=== PATIENT | male | born 1990 | race Caucasian/White ===

== ENCOUNTER 2018-11-27 08:02 | Emergency (ER) | payer MEDICAID, OTHER ==
[~2018-11-27] VITALS: Ht 180.3 cm; Wt 99.8 kg
[2018-11-27 08:08] VITALS: BP 125/71
[2018-11-27] MEDS ORDERED: DEXAMETHASONE 4 MG TABLET PO ONE (08:15)
[2018-11-27] MEDS ORDERED: PERM60CR12 TP (08:19)
[2018-11-27] MEDS ORDERED: PRED20TA PO (08:20)
--- NOTE | 2018-11-27 08:20 | PHYS DOC ---
Past History Past Medical History: No Pertinent History Past Surgical History: Tonsillectomy Smoking: Cigarettes Alcohol Use: None Drug Use: None Adult General Chief Complaint Chief Complaint: SKIN RASH/ABSCESS HPI HPI 28-year-old male presents via EMS from [facility] with report of rash to whole body times one week. Reports rash is pruritic in nature. Denies known exposure. Patient reports he has been "all over". Denies taking any medication to help with symptoms. Denies fever or chills. Review of Systems Review of Systems Constitutional: Denies fever or chills Eyes: Denies redness or eye pain HENT: Denies nasal congestion or sore throat Respiratory: Denies cough or shortness of breath Cardiovascular: Denies chest pain or palpitations GI: Denies abdominal pain, nausea, or vomiting : Denies dysuria or hematuria Musculoskeletal: Denies back pain or joint pain Integument: Reports rash to trunk and extremities, reports pruritus Neurologic: Denies headache, focal weakness or sensory changes Complete systems were reviewed and found to be within normal limits, except as documented in this note. Allergies Allergies Allergies Coded Allergies Type Severity Reaction Last Updated Verified Antihistamines - Alkylamine Allergy Unknown 11/27/18 Yes Penicillins Allergy Unknown 11/27/18 Yes Physical Exam Physical Exam Constitutional: Well developed, well nourished, no acute distress, non-toxic appearance HENT: Normocephalic, atraumatic, oropharynx moist Eyes: Conjunctiva normal, no discharge Neck: Normal range of motion, no tenderness, supple Lungs & Thorax: No respiratory distress Skin: Warm, dry, no erythema, scattered maculopapular rash to trunk and bilateral upper and lower extremities, rash also noted along the line. Does not appear to be in between fingers Extremities: No tenderness, ROM intact Neurologic: Alert and oriented X 3, no focal deficits noted Psychologic: Affect normal, judgement normal Current Patient Data Vital Signs Vital Signs Date Time Temp Pulse Resp B/P (MAP) Pulse Ox O2 Delivery O2 Flow Rate FiO2 11/27/18 08:08 97.8 85 18 97 Room Air EKG EKG [] Radiology/Procedures Radiology/Procedures [] Course & Med Decision Making Course & Med Decision Making Patient presents with pruritic rash to bilateral upper and lower extremities along with trunk. Worse of long belt line. Concern for possible scabies. Symptomatic treatment provided with oral steroid. Permethrin cream prescribed. Patient stable for discharge with outpatient follow-up with PCP. Discussed findings and plan with patient, who acknowledges understanding and agreement. Tristin Disclaimer Cristalon Disclaimer This electronic medical record was generated, in whole or in part, using a voice recognition dictation system. Departure Departure: Impression: Primary Impression: Dermatitis Disposition: HOME, SELF-CARE Condition: STABLE Referrals: DG SOLIMAN DO (PCP) Patient Instructions: Rash, [id number], Scabies Scripts Prednisone (PREDNISONE) 20 Mg Tablet 2 TAB PO DAILY for Rash, #8 TAB Start this presription tomorrow. Prov: YADIEL PORTILLO DO 11/27/18 Permethrin (PERMETHRIN) 60 Gm Cream..g. 1 DALE TP ONCE for Dermatitis, #60 GM Apply cream to entire body from head to feet and leave on for 8-14 hours, then wash with soap/water, repeat application in 14 days after initial treatment Prov: YADIEL PORTILLO DO 11/27/18 YADIEL PORTILLO DO Nov 27, 2018 08:20
== END 2018-11-27 08:28 | disposition home or self-care (01) ==
LOC: ER 08:02
DX: L30.9 Dermatitis, unspecified (principal); F17.210 Nicotine dependence, cigarettes, uncomplicated; Z59.0 Homelessness; Z88.0 Allergy status to penicillin; Z88.8 Allergy status to other drugs, medicaments and biological substances
CPT/HCPCS: 99283; J8540

== ENCOUNTER 2018-11-27 19:35 | Emergency (ER) | payer MEDICAID ==
[~2018-11-27] VITALS: Ht 180.3 cm; Wt 99.8 kg
[~2018-11-27 19:35] MED LIST: PERM60CR12 TP; PRED20TA PO
--- NOTE | 2018-11-27 20:32 | ED.ADGEN ---
Past History Past Medical History: No Pertinent History, Anxiety, Bipolar, Schizophrenia, Other Past Surgical History: Tonsillectomy Smoking: Cigarettes Alcohol Use: None Drug Use: None Adult General Chief Complaint Chief Complaint ".. I am dehydrated... maybe I got some rat poison.. I was here earlier.. and got treatment for my bug bites... and rash.. but now I am dehydrated...".. " [facility] a [facility]....you need to just admit me and let me sleep here tonight...." " I am afraid my BP is too high. " " I need to drink some gator aid..." HPI HPI Patient is a 28 year old male who presents with above hx and complaints. Pt. return from earlier visit to ED. Now compliant of heat stroke... and possible poisoning by rat poison. Pt very poor historian. No complaints of suicidal ideation. No complaints homicidal ideation. No complaints of hallucinations. Patient does state he has a history of psychological issues. Review of Systems Review of Systems Constitutional: Complaints of fever Eyes: Denies change in visual acuity, redness, or eye pain [] HENT: Denies nasal congestion or sore throat [] Respiratory: Denies cough or shortness of breath [] Cardiovascular: No additional information not addressed in HPI [] GI: Denies abdominal pain, nausea, vomiting, bloody stools or diarrhea [] : Denies dysuria or hematuria [] Musculoskeletal: Denies back pain or joint pain [] Integument: Denies rash or skin lesions [] Neurologic: Denies headache, focal weakness or sensory changes [] Endocrine: Denies polyuria or polydipsia [] All other systems were reviewed and found to be within normal limits, except as documented in this note. Family History Family History Refused by pt. Current Medications Current Medications Current Medications Medications (Trade) Dose Ordered Sig/[place] Start Time Stop Time Status Last Admin Dose Admin Acetaminophen (Tylenol) 1,000 mg 1X ONCE 11/28/18 06:30 11/28/18 06:33 DC 11/28/18 06:27 1,000 MG Lactated Ringer's 1,000 ml @ 1,000 mls/hr Q1H 11/27/18 20:45 11/28/18 09:19 DC 11/27/18 21:23 1,000 MLS/HR Allergies Allergies Allergies Coded Allergies Type Severity Reaction Last Updated Verified Antihistamines - Alkylamine Allergy Unknown 11/27/18 Yes Penicillins Allergy Unknown 11/27/18 Yes Physical Exam Physical Exam Constitutional: Well developed, well nourished, no acute distress, non-toxic appearance. [] HENT: Normocephalic, atraumatic, bilateral external ears normal, oropharynx moist, no oral exudates, nose normal. [] Eyes: PERRLA, EOMI, conjunctiva normal, no discharge. [] Neck: Normal range of motion, no tenderness, supple, no stridor. [] Cardiovascular:Heart rate regular rhythm, no murmur [] Lungs & Thorax: Bilateral breath sounds clear to auscultation [] Abdomen: Bowel sounds normal, soft, no tenderness, no masses, no pulsatile masses. [] Skin: Warm, dry, no erythema, no rash. [] Back: No tenderness, no CVA tenderness. [] Extremities: No tenderness, no cyanosis, no clubbing, ROM intact, no edema. [] Neurologic: Alert and oriented X 3, normal motor function, normal sensory function, no focal deficits noted. [] Psychologic: Affect argumentative, judgement normal, mood normal. [] Current Patient Data Vital Signs Vital Signs Date Time Temp Pulse Resp B/P (MAP) Pulse Ox O2 Delivery O2 Flow Rate FiO2 11/28/18 07:01 71 14 102/45 (64) 100 Room Air 11/28/18 03:29 97.5 Lab Results Laboratory Tests Test 11/27/18 20:45 White Blood Count 6.7 x10^3/uL (4.0-11.0) Red Blood Count 4.63 x10^6/uL (4.30-5.70) Hemoglobin 14.3 g/dL (13.0-17.5) Hematocrit 43.1 % (39.0-53.0) Mean Corpuscular Volume 93 fL (79-100) Mean Corpuscular Hemoglobin 31 pg (25-35) Mean Corpuscular Hemoglobin Concent 33 g/dL (31-37) Red Cell Distribution Width 13.3 % (11.5-14.5) Platelet Count 287 x10^3/uL (140-400) Neutrophils (%) (Auto) 86 % (31-73) H Lymphocytes (%) (Auto) 9 % (24-48) L Monocytes (%) (Auto) 4 % (0-9) Eosinophils (%) (Auto) 0 % (0-3) Basophils (%) (Auto) 1 % (0-3) Neutrophils # (Auto) 5.7 x10^3uL (1.8-7.7) Lymphocytes # (Auto) 0.6 x10^3/uL (1.0-4.8) L Monocytes # (Auto) 0.3 x10^3/uL (0.0-1.1) Eosinophils # (Auto) 0.0 x10^3/uL (0.0-0.7) Basophils # (Auto) 0.1 x10^3/uL (0.0-0.2) Prothrombin Time 11.0 SEC (9.4-11.4) Prothrombin Time INR 1.1 (0.9-1.1) PTT 27 SEC (23-33) Urine Collection Type Unknown Urine Color Yellow Urine Clarity Clear Urine pH 6.0 Urine Specific [place] <=1.005 Urine Protein Neg (NEG-TRACE) Urine Glucose (UA) Neg mg/dL (NEG) Urine Ketones (Stick) Neg mg/dL (NEG) Urine Blood Neg (NEG) Urine Nitrite Neg (NEG) Urine Bilirubin Neg (NEG) Urine Urobilinogen Dipstick 0.2 mg/dL (0.2 mg/dL) Urine Leukocyte Esterase Neg (NEG) Urine RBC 0 /HPF (0-2) Urine WBC 0 /HPF (0-4) Urine Squamous Epithelial Cells Occ /LPF Urine Bacteria 0 /HPF (0-FEW) Sodium Level 142 mmol/L (136-145) Potassium Level 4.3 mmol/L (3.5-5.1) Chloride Level 105 mmol/L (98-107) Carbon Dioxide Level 28 mmol/L (21-32) Anion Gap 9 (6-14) Blood Urea Nitrogen 12 mg/dL (8-26) Creatinine 0.8 mg/dL (0.7-1.3) Estimated GFR (Cockcroft-Gault) 116.0 Glucose Level 180 mg/dL (70-99) H Calcium Level 9.1 mg/dL (8.5-10.1) Magnesium Level 2.3 mg/dL (1.8-2.4) Total Bilirubin 0.2 mg/dL (0.2-1.0) Direct Bilirubin 0.1 mg/dL (0.0-0.2) Aspartate Amino Transferase (AST) 21 U/L (15-37) Alanine Aminotransferase (ALT) 37 U/L (16-63) Alkaline Phosphatase 83 U/L (46-116) Creatine Kinase 160 U/L (39-308) Troponin I Quantitative < 0.017 ng/mL (0-0.055) Total Protein 7.1 g/dL (6.4-8.2) Albumin 3.8 g/dL (3.4-5.0) Urine Opiates Screen Neg (NEG) Urine Methadone Screen Neg (NEG) Urine Barbiturates Neg (NEG) Urine Phencyclidine Screen Neg (NEG) Urine Amphetamine/Methamphetamine Neg (NEG) Urine Benzodiazepines Screen Neg (NEG) Urine Cocaine Screen Neg (NEG) Urine Cannabinoids Screen Neg (NEG) Urine Ethyl Alcohol Neg (NEG) EKG EKG [] Radiology/Procedures Radiology/Procedures [] Course & Med Decision Making Course & Med Decision Making Pertinent Labs and Imaging studies reviewed. (See chart for details) After reviewing labs and fluid bolus of LR. Pt. in process of discharge. Stated he wanted to stay the night. Offer transfer to homeless assisted. Pt. then stated he wanted to be evaluated for Suicide. No plan. Pt. states he would have to stay and be evaluated. See Tele Psych. eval. Awaiting Tele. Psych. report and possible placement at shift change. Dr. Humberto rogel will make disposition. [] Final Impression Final Impression 1. Anxiety disorder 2. Heat complaints 3. Possible malingering 4. Reports suicidal ideation[] 5. Hx. Schizoaffective disorder 6. Hx. Bipolar 7. Hx. of borderline personality Dragon Disclaimer Dragon Disclaimer This electronic medical record was generated, in whole or in part, using a voice recognition dictation system. MARK KELSEY MD Nov 27, 2018 20:32
[2018-11-27 20:59] LABS: BASO # 0.1 x10^3/uL (0.0-0.2); BASO % 1 % (0-3); EOS % 0 % (0-3); HEMATOCRIT 43.1 % (39.0-53.0); HEMOGLOBIN 14.3 g/dL (13.0-17.5); LYMPH # 0.6 x10^3/uL (1.0-4.8); LYMPH % 9 % (24-48); MEAN CORPUSCULAR HEMOGLOBIN 31 pg (25-35); MEAN CORPUSCULAR HGB CONC 33 g/dL (31-37); MEAN CORPUSCULAR VOLUME 93 fL (79-100); MONO # 0.3 x10^3/uL (0.0-1.1); MONO % 4 % (0-9); NEUT # 5.7 x10^3uL (1.8-7.7); NEUT % 86 % (31-73); PLATELET COUNT 287 x10^3/uL (140-400); RED BLOOD COUNT 4.63 x10^6/uL (4.30-5.70); RED CELL DISTRIBUTION WIDTH 13.3 % (11.5-14.5); WHITE BLOOD COUNT 6.7 x10^3/uL (4.0-11.0)
[2018-11-27 21:07] LABS: AMPHETAMINE/METHAMPHETAMINE NEG (NEG); BARBITURATES NEG (NEG); BENZODIAZEPINES NEG (NEG); CANNABINOIDS NEG (NEG); COCAINE NEG (NEG); METHADONE NEG (NEG); OPIATES NEG (NEG); PHENCYCLIDINE NEG (NEG)
[2018-11-27 21:11] LABS: BILIRUBIN,URINE NEG (NEG); CLARITY,URINE CLEAR; COLOR,URINE YELLOW; GLUCOSE,URINE NEG (NEG)
[2018-11-27 21:12] LABS: BACTERIA,URINE 0 /HPF (0-FEW); NITRITE,URINE NEG (NEG); RBC,URINE 0 /HPF (0-2); SQUAMOUS EPITHELIAL CELL,UR OCC /LPF; UROBILINOGEN,URINE 0.2 mg/dL (0.2 mg/dL); WBC,URINE 0 /HPF (0-4)
[2018-11-27 21:20] LABS: ALBUMIN 3.8 g/dL (3.4-5.0); CALCIUM 9.1 mg/dL (8.5-10.1); CREATININE 0.8 mg/dL (0.7-1.3); DIRECT BILIRUBIN 0.1 mg/dL (0.0-0.2); MAGNESIUM 2.3 mg/dL (1.8-2.4); POTASSIUM 4.3 mmol/L (3.5-5.1); TOTAL BILIRUBIN 0.2 mg/dL (0.2-1.0); TOTAL PROTEIN 7.1 g/dL (6.4-8.2)
[2018-11-27] MEDS: IV RINGERS SOLUTION,LACTATED 1,000 ML IV SCH (21:23)
[2018-11-28] MEDS ORDERED: ACETAMINOPHEN 500 MG TABLET PO ONE (06:30)
[2018-11-28 07:01] VITALS: BP 102/45
== END 2018-11-28 09:13 | disposition home or self-care (01) ==
LOC: EEVIPCON 19:35 → ER 19:35
DX: T67.0XXA Heatstroke and sunstroke, initial encounter (principal); R45.851 Suicidal ideations; F41.9 Anxiety disorder, unspecified; F20.9 Schizophrenia, unspecified; F31.9 Bipolar disorder, unspecified; E86.0 Dehydration; F17.210 Nicotine dependence, cigarettes, uncomplicated; Z88.0 Allergy status to penicillin; Z88.8 Allergy status to other drugs, medicaments and biological substances; X58.XXXA Exposure to other specified factors, initial encounter; Y93.89 Activity, other specified; Y92.89 Other specified places as the place of occurrence of the external cause; Y99.8 Other external cause status
CPT/HCPCS: 36415; 80048; 80076; 80307; 81001; 82550; 83735; 84484; 85025; 85610; 85730; 99284; J7120; 96360

== ENCOUNTER 2019-01-10 15:07 | Emergency (ER) | payer SELFPAY ==
[~2019-01-10] VITALS: Ht 180.3 cm; Wt 99.8 kg
[2019-01-10 15:07] VITALS: BP 122/81
[2019-01-10] MEDS ORDERED: PRED20TA PO (15:25)
--- NOTE | 2019-01-10 15:25 | PHYS DOC ---
Past History Past Medical History: No Pertinent History, Anxiety, Bipolar, Schizophrenia, Other Past Surgical History: Other Smoking: Cigarettes Alcohol Use: None Drug Use: None Adult General Chief Complaint Chief Complaint: SKIN RASH/ABSCESS HPI HPI Patient is a 28-year-old male presents with an itching rash for the past 4 days. Patient reports exposure to poison [place]. Denies any difficulty breathing. No relief with calamine lotion. No fever. No discharge from the rash. Symptoms are moderate in intensity. Rash is on his arms and legs. No torso involvement.[] Review of Systems Review of Systems Constitutional: Denies fever or chills [] Eyes: Denies change in visual acuity, redness, or eye pain [] HENT: Denies nasal congestion or sore throat [] Respiratory: Denies cough or shortness of breath [] Cardiovascular: No chest pain or palpitations[] GI: Denies abdominal pain, nausea, vomiting, bloody stools or diarrhea [] : Denies dysuria or hematuria [] Musculoskeletal: Denies back pain or joint pain [] Integument: See history of present illness[] Neurologic: Denies headache, focal weakness or sensory changes [] Endocrine: Denies polyuria or polydipsia [] All other systems were reviewed and found to be within normal limits, except as documented in this note. Allergies Allergies Allergies Coded Allergies Type Severity Reaction Last Updated Verified Antihistamines - Alkylamine Allergy Unknown 11/27/18 Yes Penicillins Allergy Unknown 11/27/18 Yes Physical Exam Physical Exam Constitutional: Well developed, well nourished, no acute distress, non-toxic appearance. [] HENT: Normocephalic, atraumatic, bilateral external ears normal, oropharynx moist, no oral exudates, nose normal. [] Eyes: PERRLA, EOMI, conjunctiva normal, no discharge. [] Neck: Normal range of motion, no tenderness, supple, no stridor. [] Cardiovascular:Heart rate regular rhythm, no murmur [] Lungs & Thorax: Bilateral breath sounds clear to auscultation [] Abdomen: Bowel sounds normal, soft, no tenderness, no masses, no pulsatile masses. [] Skin: Warm, dry, erythematous rash on bilateral arms and legs. No torso involvement, no back involvement. No discharge from the erythematous wheals. No petechiae. No ulcers. No axillary lymphadenopathy. [] Back: No tenderness, no CVA tenderness. [] Extremities: No tenderness, no cyanosis, no clubbing, ROM intact, no edema. [] Neurologic: Alert and oriented X 3, normal motor function, normal sensory function, no focal deficits noted. [] Psychologic: Affect normal, judgement normal, mood normal. [] EKG EKG [] Radiology/Procedures Radiology/Procedures [] Course & Med Decision Making Course & Med Decision Making Pertinent Labs and Imaging studies reviewed. (See chart for details) ED course: Patient arrived, was placed in bed, and tolerated exam well. Findings were discussed with the patient along with plan. All questions were answered. He was discharged in improved condition. Medical decision making: Patient with a Rhus dermatitis. No evidence of systemic toxicity. No toxic epidermal necrolysis, no staph scalded skin syndrome, no Sandoval-Fortunato syndrome.[] Dragon Disclaimer Dragon Disclaimer This electronic medical record was generated, in whole or in part, using a voice recognition dictation system. Departure Departure: Impression: Primary Impression: Rhus dermatitis Disposition: HOME, SELF-CARE Condition: IMPROVED Referrals: PCP,NO (PCP) Patient Instructions: Poison [place] Additional Instructions: Follow-up with your regular doctor in 2 days. If you do not have a regular doctor a list of local clinics will be provided for you. Return to the ER if worsening rash, difficulty breathing, or any other concerns. Scripts Prednisone (PREDNISONE) 20 Mg Tablet 20 MG PO as directed for allergic reaction, #20 TAB 3 tablets daily on days 1, 2, and 3 2 tablets daily on days 4, 5, and 6 1 tablet daily on days 7, 8, and 9 Half tablet daily on days 10 through 13 Prov: PAOLA HUBER DO 01/10/19 PAOLA HUBER DO Jan 10, 2019 15:25
== END 2019-01-10 15:29 | disposition home or self-care (01) ==
LOC: ER 15:07
DX: L23.7 Allergic contact dermatitis due to plants, except food (principal); F20.9 Schizophrenia, unspecified; F31.9 Bipolar disorder, unspecified; F17.210 Nicotine dependence, cigarettes, uncomplicated; F41.9 Anxiety disorder, unspecified; Z88.8 Allergy status to other drugs, medicaments and biological substances; Z88.0 Allergy status to penicillin
CPT/HCPCS: 99283

== ENCOUNTER 2019-02-02 15:07 | Emergency (ER) | payer SELFPAY ==
[2019-02-02 15:17] VITALS: BP 119/70
[2019-02-02] MEDS ORDERED: HYOS0.1264 PO (16:00)
[2019-02-02] MEDS ORDERED: DOXY100T PO (16:00)
[2019-02-02] MEDS ORDERED: MELO7.5T29 PO (16:00)
--- NOTE | 2019-02-02 16:01 | PHYS DOC ---
Past History Past Medical History: Bipolar, Schizophrenia Past Surgical History: Tonsillectomy Smoking: Cigarettes, Less than 1pk/day Alcohol Use: None Drug Use: Marijuana, Methamphetamine Adult General Chief Complaint Chief Complaint: MULTIPLE COMPLAINTS HPI HPI Patient is a 28-year-old male presents with multiple complaints, skin burning like he had been in poison [place]. Dry mouth. That he is having bowel movements of solid pieces of food like it is undigested, and dysuria. He denies any blood in the urine. Denies any trauma. Patient reports smoking methamphetamine within the past 48 hours. Symptoms started shortly after this. Nothing makes the symptoms better or worse. He has not seen his primary care physician for this. There has been no nausea or vomiting.[] Review of Systems Review of Systems Constitutional: Denies fever or chills [] Eyes: Denies change in visual acuity, redness, or eye pain [] HENT: Denies nasal congestion or sore throat [] Respiratory: Denies cough or shortness of breath [] Cardiovascular: No chest pain or palpitations [] GI: See history of present illness[] : Denies dysuria or hematuria [] Musculoskeletal: Denies back pain or joint pain [] Integument: See history of present illness[] Neurologic: Denies headache, focal weakness or sensory changes [] Endocrine: Denies polyuria or polydipsia [] All other systems were reviewed and found to be within normal limits, except as documented in this note. Allergies Allergies Allergies Coded Allergies Type Severity Reaction Last Updated Verified Antihistamines - Alkylamine Allergy Unknown 11/27/18 Yes Penicillins Allergy Unknown 11/27/18 Yes Physical Exam Physical Exam Constitutional: Well developed, well nourished, no acute distress, non-toxic appearance. [] HENT: Normocephalic, atraumatic, bilateral external ears normal, oropharynx moist, no oral exudates, nose normal. [] Eyes: PERRLA, EOMI, conjunctiva normal, no discharge. [] Neck: Normal range of motion, no tenderness, supple, no stridor. [] Cardiovascular:Heart rate regular rhythm, no murmur [] Lungs & Thorax: Bilateral breath sounds clear to auscultation [] Abdomen: Bowel sounds normal, soft, no tenderness, no masses, no pulsatile masses. [] Skin: Warm, dry, no erythema, no rash. [] Back: No tenderness, no CVA tenderness. [] Extremities: No tenderness, no cyanosis, no clubbing, ROM intact, no edema. [] Neurologic: Alert and oriented X 3, normal motor function, normal sensory function, no focal deficits noted. [] Psychologic: Affect normal, judgement normal, mood normal. [] Current Patient Data Vital Signs Vital Signs Date Time Temp Pulse Resp B/P (MAP) Pulse Ox O2 Delivery O2 Flow Rate FiO2 02/02/19 15:17 98.5 82 18 97 Room Air EKG EKG [] Radiology/Procedures Radiology/Procedures [] Course & Med Decision Making Course & Med Decision Making Pertinent Labs and Imaging studies reviewed. (See chart for details) ED course: Patient arrived, was placed in bed, and tolerated exam well. Findings were discussed with the patient who voiced understanding. All questions were answered. He was discharged in improved condition. Medical decision making: Patient with a myriad of complaints that started after his methamphetamine use. Counseled about the also using recreational drugs, es pecially ones that are not legal. Nontoxic patient. We'll treat him for pain and will cover in case there is a urinary tract infection however do not see evidence of this. Nontoxic patient.[] Dragon Disclaimer Dragon Disclaimer This electronic medical record was generated, in whole or in part, using a voice recognition dictation system. Departure Departure: Impression: Primary Impression: Methamphetamine abuse Additional Impressions: Dysuria Myalgia Disposition: HOME, SELF-CARE Condition: IMPROVED Referrals: PCP,NO (PCP) Patient Instructions: Dysuria, Methamphetamine Abuse, Complications, Myalgia, Adult Additional Instructions: Do not use any drugs or medications that are not prescribed for you, they may kill you! Drink plenty of fluids. Follow-up with your regular doctor in 2 days. If you do not have regular doctor list of local clinics will be provided for you. Return to the ER if difficulty breathing, fever of more than 101, or any other concerns. Scripts Meloxicam (MELOXICAM) 7.5 Mg Tablet 7.5 MG PO DAILY for PAIN, #20 TAB Prov: PAOLA HUBER DO 02/02/19 Hyoscyamine Sulfate (LEVSIN) 0.125 Mg Tablet 0.125 MG PO QID for abdominal pain/cramping, #30 TAB Prov: PAOLA HUBER DO 02/02/19 Doxycycline Hyclate (DOXYCYCLINE HYCLATE) 100 Mg Tablet 1 TAB PO BID for dysuria, #20 TAB Prov: PAOLA HUBER DO 02/02/19 Problem Qualifiers PAOLA HUBER DO Feb 02, 2019 16:00
== END 2019-02-02 16:17 | disposition home or self-care (01) ==
LOC: ER 15:07
DX: F15.10 Other stimulant abuse, uncomplicated (principal); R30.0 Dysuria; M79.10 Myalgia, unspecified site; F31.9 Bipolar disorder, unspecified; F20.9 Schizophrenia, unspecified; F17.210 Nicotine dependence, cigarettes, uncomplicated; F12.10 Cannabis abuse, uncomplicated; Z88.0 Allergy status to penicillin; Z88.8 Allergy status to other drugs, medicaments and biological substances
CPT/HCPCS: 99283